=== PATIENT | female | born 1975 | race Caucasian/White ===

== ENCOUNTER 2016-12-15 21:55 | Emergency (ER) | payer OTHER ==
[2016-12-15 22:01] VITALS: BP 152/96; BMI 30.2
--- NOTE | 2016-12-15 23:42 | DR.GENAD ---
HPI - PCP Primary Care Physician: NFFarzaneh - HPI Comment HPI Comment: NO HISTORY TRAUMA. NO DYSURIA. PATIENTS MUSCLE IS TWICHING LLE. STAND AT WORK AND LEFT A LOT. - Complaint/Symptoms Chief Complaint Doctors Comments: LOWER LEFT BACK PAIN AND PAIN LEFT THIGH NOTED TODAY. Chief Complaint:: PT STATES" I STARTED HAVING PAIN IN MY LEFT LEG TODAY NOW IM HAVING MUSCLE SPASMS ALL DOWN MY LEG AND MY BACK ON THE LEFT SIDE" - Nurses notes reviewed Nurses Notes Review: Yes - Source History Provided: Patient - Mode of Arrival Mode of Arrival: Ambulatory - Timing Onset of Chief Complaint: 12/15/16 - Duration Duration: Constant Duration: Hours - Severity Severity: Moderate PMH - PMH Past Medical History: No Past Surgical History: Yes Surgical History: Past Surgical History Comment: TUBALIGATION - Family History History of Family Medical Conditions: Yes Family Medical History: Diabetes Mellitus, Cancer, Hypertension - Social History Does any household member use tobacco: No Alcohol Use: Occasionally Do you use any recreational Drugs:: No Lives With: Family Lives Where: Home - infectious screening In the last 2 months have you had wt loss of >10#?: NO Have you had fever, night sweats or hemotysis?: No Have you traveled outside the country in the last 6 months?: No Isolation: Standard ROS - Review of Systems Constitutional: No Symptoms Reported Eyes: No Symptoms Reported ENTM: No Symptoms Reported Respiratoy: No Symptoms Reported Cardiovascular: No Symptoms Reported Gastrointestinal/Abdominal: No Symptoms Reported Genitourinary: No Symptoms Reported Neurological: Tremors (AND TWICHING LLE.) Musculoskeletal: Back Pain, Left, Back, Pelvis, Hip, Leg Integumentary: No Symptoms Reported Hematologic/Lymphatic: No Symptoms Reported Endocrine: No Symptoms Reported All Other Systems: Reviewed and Negative PE - Vital Signs Vitals: Temperature 98 F Pulse Rate 65 Respiratory Rate 20 Blood Pressure 152/96 O2 Sat by Pulse Oximetry 100 - General Limitations: No Limitations General Appearance: Alert - Head Head Exam: Normal Inspection - Eyes Eye exam: Normal Appearance - ENT ENT Exam: Normal External Ear Exam External Ear Exam: Normal External Inspection TM/Canal Exam: Bilateral Normal Nose Exam: Normal Nose Exam Mouth Exam: Normal Inspection Throat Exam: Normal Inspection - Neck Neck Exam: Normal Inspection - Chest Chest Inspection: Symmetric Chest Wall Rise - Cardiovascular Cardiovascular Exam: Regular Rate, Normal Rhythm, Normal Heart Sounds - Abdominal Exam Abdominal Exam: Normal Bowel Sounds, Soft. negative: Tenderness - Extremities Extremities Exam: Tenderness (LEFT THIGH.) - Back Back Exam: Muscle Spasm, Paraspinal Tenderness (LEFT LOWER BACK), Vertebral Tenderness - Psychiatric Psychiatric Exam: Anxious - Skin Skin Exam: Normal Color MDM - Additional Information Additional Information Obtained From: Family - Differential Diagnosis Differential Diagnosis: LOW BACK PAIN, UTI, KIDNEY STONE, LT THIGH PAIN AND TWICHING, SCIATICA Course - Treatment Treatment: SEE ORDERS. TORADOL AND NORFLEX IM IN ED. DISCOMFORT IMPROVED. - Reevaluation 1st: Improved - Education/Counseling Education/Counseling: Patient, Family, Education Educated On: Treatment, Diagnosis, Needs for Follow Up ROR - Labs Reviewed Laboratory Results Reviewed?: Yes Result Diagrams: 12/15/16 23:50 12/15/16 23:50 Laboratory: WBC 9.6 X10^3/uL (3.6-10.0) 12/15/16 23:50 RBC 4.76 X10^6/uL (3.5-5.4) 12/15/16 23:50 Hgb 14.2 g/dL (12.0-16.0) 12/15/16 23:50 Hct 41.5 % (36.0-47.0) 12/15/16 23:50 MCV 87.2 fL (80.0-100.0) 12/15/16 23:50 MCH 29.8 pg (27.0-34.0) 12/15/16 23:50 MCHC 34.2 g/dL (33.0-35.0) 12/15/16 23:50 RDW 13.6 % (11.6-16.5) 12/15/16 23:50 Plt Count 373 X10^3/uL (150.0-450.0) 12/15/16 23:50 MPV 7.4 fL (7.4-11.0) 12/15/16 23:50 Neut % 47.7 % (42.0-75.0) 12/15/16 23:50 Lymph % 42.1 % (21.0-51.0) 12/15/16 23:50 Tompkins % 7.6 % (0.0-13.0) 12/15/16 23:50 Eos % 2.0 % (0.9-2.9) 12/15/16 23:50 Baso % 0.6 % (0.2-1.0) 12/15/16 23:50 Neut # 4.6 x10^3/uL (2.2-4.8) 12/15/16 23:50 Lymph # 4.0 X10^3/uL (1.3-2.9) H 12/15/16 23:50 Tompkins # 0.7 x10^3/uL (0.3-0.8) 12/15/16 23:50 Eos # 0.2 x10^3/uL (0.0-0.2) 12/15/16 23:50 Baso # 0.1 X10^3/uL (0.0-0.1) 12/15/16 23:50 Absolute Nucleated RBC 0.2 /100WBC 12/15/16 23:50 D-Dimer 173 ng/mL (0-400) 12/15/16 23:50 Sodium 137 mmol/L (136-145) 12/15/16 23:50 Corrected Sodium TNP 12/15/16 23:50 Potassium 3.7 mmol/L (3.5-5.1) 12/15/16 23:50 Chloride 104 mmol/L (98-107) 12/15/16 23:50 Carbon Dioxide 28.1 mmol/L (21-32) 12/15/16 23:50 BUN 14 mg/dL (7-18) 12/15/16 23:50 Creatinine 0.86 mg/dL (0.55-1.02) 12/15/16 23:50 Est GFR (MDRD) Af Amer > 60 (>60) 12/15/16 23:50 Est GFR (MDRD) Non-Af > 60 (>60) 12/15/16 23:50 Glucose 93 mg/dL (65-99) 12/15/16 23:50 Calcium 8.9 mg/dL (8.5-10.1) 12/15/16 23:50 Corrected Calcium TNP 12/15/16 23:50 Total Bilirubin 0.20 mg/dL (0.2-1.0) 12/15/16 23:50 AST 12 Units/L (15-37) L 12/15/16 23:50 ALT 21 Units/L (12-78) 12/15/16 23:50 Alkaline Phosphatase 61 Units/L (46-116) 12/15/16 23:50 Total Protein 7.8 g/dL (6.4-8.2) 12/15/16 23:50 Albumin 4.0 g/dL (3.4-5.0) 12/15/16 23:50 Globulin 3.8 g/dL (2.5-4.5) 12/15/16 23:50 Albumin/Globulin Ratio 1.1 Ratio (1.1-2.1) 12/15/16 23:50 Specimen Type Clean catch urine 12/15/16 23:52 Urine Color Yellow (YELLOW) 12/15/16 23:52 Urine Appearance Clear (CLEAR) 12/15/16 23:52 Urine pH 5.0 (5.0 - 8.0) 12/15/16 23:52 Ur Specific Mcgregor 1.020 (1.000-1.030) 12/15/16 23:52 Urine Protein Negative (NEGATIVE) 12/15/16 23:52 Urine Glucose (UA) Negative (NEGATIVE) 12/15/16 23:52 Urine Ketones Negative (NEGATIVE) 12/15/16 23:52 Urine Occult Blood 1+ (NEGATIVE) 12/15/16 23:52 Urine Nitrite Negative (NEGATIVE) 12/15/16 23:52 Urine Bilirubin Negative (NEGATIVE) 12/15/16 23:52 Urine Urobilinogen Normal (NORMAL) 12/15/16 23:52 Ur Leukocyte Esterase Negative (NEGATIVE) 12/15/16 23:52 Urine RBC 0-3 /HPF (NEGATIVE) 12/15/16 23:52 Urine WBC 0-3 /HPF (NEGATIVE) 12/15/16 23:52 Ur Squamous Epith Cells Few /HPF (NEGATIVE) 12/15/16 23:52 Urine Bacteria Negative /HPF (NEGATIVE) 12/15/16 23:52 Ur Culture Indicated? No/not indicated 12/15/16 23:52 - XRAY XRAY Interpreted by: Radiologist XRAY Findings: REPORT DISCUSS WITH PATIENT. - Diagnosis Discharge Problem: Muscle spasm Low back pain Qualifiers: Chronicity: acute Back pain laterality: left Sciatica presence: with sciatica Sciatica laterality: sciatica of left side Qualified Code(s): M54.42 - Lumbago with sciatica, left side - Discharge Plan Disposition: 01 HOME, SELF-CARE Condition: Stable Prescriptions: Cyclobenzaprine HCl [FLEXERIL 10 MG *] 10 mg PO TID PRN #20 tab PRN Reason: Ibuprofen [MOTRIN TAB 600 MG *] 600 mg PO TID PRN #20 tab PRN Reason: Pain/Inflammation - Follow ups/Referrals Follow ups/Referrals: N[facility],None [Primary Care Provider] - 3 days - Instructions Instructions: Back Pain, Adult, [id number], Muscle Cramps and Spasms, Easy-to -Read Additional Instructions: RETURN TO ED IF WORSE.
[2016-12-16 00:15] LABS: BASOPHILS # (AUTO) 0.1 X10^3/uL (0.0-0.1); BASOPHILS % (AUTO) 0.6 % (0.2-1.0); EOSINOPHILS # (AUTO) 0.2 x10^3/uL (0.0-0.2); HEMATOCRIT 41.5 % (36.0-47.0); HEMOGLOBIN 14.2 g/dL (12.0-16.0); LYMPHOCYTES % (AUTO) 42.1 % (21.0-51.0); MEAN CORPUSCULAR HEMOGLOBIN 29.8 pg (27.0-34.0); MEAN CORPUSCULAR HGB CONC 34.2 g/dL (33.0-35.0); MEAN CORPUSCULAR VOLUME 87.2 fL (80.0-100.0); MEAN PLATELET VOLUME 7.4 fL (7.4-11.0); MONOCYTES # (AUTO) 0.7 x10^3/uL (0.3-0.8); MONOCYTES % (AUTO) 7.6 % (0.0-13.0); NEUTROPHILS # (AUTO) 4.6 x10^3/uL (2.2-4.8); NEUTROPHILS % (AUTO) 47.7 % (42.0-75.0); PLATELET COUNT 373 X10^3/uL (150.0-450.0); RED BLOOD COUNT 4.76 X10^6/uL (3.5-5.4); RED CELL DISTRIBUTION WIDTH 13.6 % (11.6-16.5); WHITE BLOOD COUNT 9.6 X10^3/uL (3.6-10.0)
[2016-12-16 00:21] LABS: BILIRUBIN,URINE NEGATIVE (NEGATIVE); BLOOD/HEMOGLOBIN,URINE 1+ (NEGATIVE); GLUCOSE, URINE NEGATIVE (NEGATIVE); KETONES,URINE NEGATIVE (NEGATIVE); LEUKOCYTE ESTERASE ,URINE NEGATIVE (NEGATIVE); NITRITES,URINE NEGATIVE (NEGATIVE); PROTEIN,URINE NEGATIVE (NEGATIVE); UROBILINOGEN,URINE NORMAL (NORMAL)
[2016-12-16 00:28] LABS: APPEARANCE,URINE CLEAR (CLEAR); BACTERIA,URINE NEGATIVE /HPF (NEGATIVE); COLOR,URINE YELLOW (YELLOW); RBC,URINE 0-3 /HPF (NEGATIVE); SQUAMOUS EPITHELIAL CELL,UR FEW /HPF (NEGATIVE)
[2016-12-16 00:33] LABS: D DIMER 173 ng/mL (0-400)
[2016-12-16 00:34] LABS: ALANINE AMINOTRANSFERASE 21 Units/L (12-78); ALKALINE PHOSPHATASE 61 Units/L (46-116); ASPARTATE AMINO TRANSFERASE 12 Units/L (15-37); BLOOD UREA NITROGEN 14 mg/dL (7-18); CALCIUM 8.9 mg/dL (8.5-10.1); CARBON DIOXIDE 28.1 mmol/L (21-32); CHLORIDE 104 mmol/L (98-107); CREATININE 0.86 mg/dL (0.55-1.02); GLUCOSE 93 mg/dL (65-99); SODIUM 137 mmol/L (136-145); TOTAL PROTEIN 7.8 g/dL (6.4-8.2); eGFR BLACK RACES > 60 (>60); eGFR NON BLACK RACES > 60 (>60)
[2016-12-16] MEDS ORDERED: TORADOL 60 MG VIAL IM ONE (01:03)
[2016-12-16] MEDS ORDERED: NORFLEX INJ IM ONE (01:03)
[2016-12-16] MEDS ORDERED: NORFLEX INJ ONE (01:28)
[2016-12-16] MEDS ORDERED: TORADOL 60 MG VIAL ONE (01:28)
--- NOTE | 2016-12-16 01:52 | RAD ---
EXAM: Left femur x-ray INDICATION: Leg pain COMPARISION: No priors for comparison TECHNIQUE: AP, lateral, and oblique, three views FINDINGS: No acute fracture or dislocation. The joint spaces are preserved. The soft tissues are normal. No ra diopaque foreign body. IMPRESSION: Normal left femur x-ray exam Reported By:
--- NOTE | 2016-12-16 01:59 | RAD ---
EXAM: Lumbar Spine X-Ray INDICATION: Lumbar pain COMPARISION: No priors for comparison TECHNIQUE: AP, lateral L-S junction, and lateral views were obtained, 3 views FINDINGS: There is mild disc space narrowing throughout the lumbar levels. Mild degenerative endplate changes are also present. No acute fracture or subluxation. The vertebral body heights are preserved. The f acets are intact. The surrounding soft tissues appear unremarkable. IMPRESSION: Mild degenerative disc changes noted throughout the lumbar spine. No acute abnormality is identified . Reported By:
== END 2016-12-16 02:22 | disposition home or self-care (01) ==
LOC: ER 22:07
DX: M62.838 Other muscle spasm (principal); M54.42 Lumbago with sciatica, left side
CPT/HCPCS: 36415; 72100; 73552; 80053; 81001; 85025; 85378; 96372; 99283; J1885; J2360